=== PATIENT | female | born 1955 | race Asian ===

== ENCOUNTER 2019-01-02 09:33 | Emergency (ER) | payer MEDICAID ==
[~2019-01-02] VITALS: Ht 149.9 cm; Wt 57.6 kg
[2019-01-02 09:38] VITALS: Ht 149.9 cm; Wt 57.6 kg
[2019-01-02 11:21] VITALS: BP 133/75
== END 2019-01-02 11:57 | disposition home or self-care (01) ==
LOC: ED 09:33
DX: M54.41 Lumbago with sciatica, right side (principal); Z87.442 Personal history of urinary calculi
CPT/HCPCS: J1885